=== PATIENT | female | born 1970 | race Caucasian/White ===

== ENCOUNTER 2018-12-15 13:31 | Emergency (ER) | payer BC ==
--- NOTE | 2018-12-15 13:54 | EDM.PDOC ---
ED HPI GENERAL MEDICAL PROBLEM - General Chief Complaint: Headache Stated Complaint: HEAD ACHE Time Seen by Provider: 12/15/18 13:46 Source of Information: Reports: Patient History Limitations: Reports: No Limitations - History of Present Illness INITIAL COMMENTS - FREE TEXT/NARRATIVE: 48-year-old female attends the ED with chief complaint of headache primarily at the base of her skull that radiates up the skull into both frontal aspects of her head and temporal scalp. Headache is for the most part constant for the last 2 weeks. Associated intermittent nausea. There's been no vomiting. She recognizes no visual acuity changes and no changes in her balance. She can drive her car with no problems and read with no problems. Headache is bad enough at bedtime that it can interfere with her sleep. She has a history of intermittent headaches but never continuous headache for the last 2 weeks. Blood pressure was identified to be elevated upon arrival in the ED at 182/101. She has no history of hypertension. She is on Effexor 75mg and Lexapro. Lexapro for greater than 1 year 10 mg strength and Effexor were started about 2 months ago. She is also on low-dose control pill. Onset: Gradual Onset Date: 12/01/18 Duration: Week(s): (Generalized headache for the last 2 weeks.), Constant, Getting Worse Location: Reports: Head Quality: Reports: Ache (Generalized headache), Pressure, Throbbing Severity: Moderate Improves with: Reports: None Worsens with: Reports: None Context: Denies: Activity, Exercise, Lifting, Sick Contact, Trauma, Other Associated Symptoms: Denies: No Other Symptoms, Confusion, Chest Pain, Cough, cough w sputum, Diaphoresis, Fever/Chills, Headaches, Loss of Appetite, Malaise , Nausea/Vomiting, Rash, Seizure, Shortness of Breath, Syncope, Weakness Treatments W[employer]: Reports: Acetaminophen, Other (see below) (Occasional doses of Zofran for nausea.) - Related Data Allergies Allergy/AdvReac Type Severity Reaction Status Date / Time Sulfa (Sulfonamide Allergy Hives Verified 12/15/18 13:45 Antibiotics) sulfamethoxazole Allergy Hives Verified 12/15/18 13:45 [From Bactrim] trimethoprim [From Bactrim] Allergy Hives Verified 12/15/18 13:45 Home Meds: Home Meds Acetaminophen/HYDROcodone [G[place] 325-5 MG] 1 tab PO Q6H PRN #12 tablet 12/15/18 [Rx] Escitalopram Oxalate 10 mg PO DAILY 12/15/18 [History] LORazepam 1 mg PO DAILY PRN 12/15/18 [History] Levothyroxine 75 mcg PO DAILY 12/15/18 [History] Lisinopril 20 mg PO DAILY #30 tablet 12/15/18 [Rx] Norgestimate-Ethinyl Estradiol [[place] 28 Tablet] 1 tab PO DAILY 12/15/18 [ History] Venlafaxine [Effexor] 75 mg PO DAILY 12/15/18 [History] Past Medical History Neurological History: Reports: Headaches, Chronic Psychiatric History: Reports: Anxiety, Depression Endocrine/Metabolic History: Reports: Hypothyroidism (On supplement.) Social & Family History - Living Situation & Occupation Living situation: Reports: Occupation: Unemployed [facility] GENER[facility] - Review of Systems Review Of Systems: See Below Constitutional: Reports: Weakness, Fatigue. Denies: Fever, Chills, Malaise, Weight Loss HEENT: Denies: Glasses, Vertigo Respiratory: Reports: No Symptoms Cardiovascular: Reports: No Symptoms. Denies: Chest Pain, Blood Pressure Problem, Claudication, Lightheadedness, Orthopnea Endocrine: Reports: Fatigue GI/Abdominal: Reports: Nausea. Denies: Vomiting : Reports: No Symptoms Musculoskeletal: Reports: Neck Pain (Pressure at the base of her skull.) Skin: Reports: No Symptoms Neurological: Reports: Headache. Denies: Paresthesia, Pre-Existing Deficit, Seizure, Syncope, Tremors, Trouble Speaking, Difficulty Walking Psychiatric: Reports: Anxiety, Depression Hematologic/Lymphatic: Reports: No Symptoms - Physical Exam Exam: See Below Exam Limited By: No Limitations General Appearance: Alert, WD/WN, No Apparent Distress, Other (Blood pressure is elevated 180 06/29/00 and came down to 192/97) Eye Exam: Bilateral Eye: Normal Fundi, Normal Inspection, PERRL Throat/Mouth: Normal Inspection, Normal Lips, Normal Oropharynx Head Exam: Atraumatic, Normocephalic Neck: Normal Inspection, Supple, Non-Tender, Full Range of Motion. No: Lymphadenopathy (L), Lymphadenopathy (R) Respiratory/Chest: No Respiratory Distress, Lungs Clear, Normal Breath Sounds, No Accessory Muscle Use Cardiovascular: Normal Peripheral Pulses, Regular Rate, Rhythm, No Edema, No Gallop, No Murmur, No Rub GI/Abdominal: Normal Bowel Sounds, Soft, Non-Tender, No Organomegaly Neuro Exam (Abbreviated): Alert, Oriented, CN II-XII Intact, Normal Cognition, Normal Gait, No Motor/Sensory Deficits Extremities: Normal Inspection, Normal Range of Motion, Non-Tender Psychiatric: Normal Affect, Normal Mood Skin Exam: Warm, Dry, Intact, Normal Color, No Rash EKG INTERPRETATION EKG Date: 12/15/18 Time: 14:00 Rhythm: NSR Rate (Beats/Min): 65 [place]: LAD-Left Garfield Deviation (-26) P-Wave: Enlarged (Consider left atrial hypertrophy.) QRS: Other (There is a Q-wave in lead V1 and V2. Consider old anteroseptal myocardial infarction. There is near Q-wave in 3 and aVF again consider old inferior wall myocardial infarction. She has no history of this.) ST-T: Other (T-wave flattening in aVF again nonspecific finding. It is also flattened V2.) QT: Normal EKG Interpretation Comments: Abnormal ECG Course - Vital Signs Last Recorded V/S: Last Vital Signs Temp 36.2 C 12/15/18 13:41 Pulse 75 12/15/18 13:41 Resp 16 12/15/18 13:41 BP 155/95 H 12/15/18 16:15 Pulse Ox 100 12/15/18 13:41 - Orders/Labs/Meds Labs: Laboratory Tests 12/15/18 12/15/18 12/15/18 Range/Units 14:00 14:00 14:00 WBC 6.69 (3.98-10.04) K/mm3 RBC 4.62 (3.98-5.22) M/mm3 Hgb 14.5 (11.2-15.7) gm/L Hct 42.9 (34.1-44.9) % MCV 92.9 (79.4-94.8) fl MCH 31.4 (25.6-32.2) pg MCHC 33.8 (32.2-35.5) g/dl RDW Std Deviation 43.9 (36.4-46.3) fL Plt Count 332 (182-369) K/mm3 MPV 9.4 (9.4-12.3) fl Neutrophils % (Manual) 69 H (40-60) % Band Neutrophils % 0 (0-10) % Lymphocytes % (Manual) 27 (20-40) % Atypical Lymphs % 0 % Monocytes % (Manual) 1 L (2-10) % Eosinophils % (Manual) 2 (0.7-5.8) % Basophils % (Manual) 1 (0.1-1.2) Platelet Estimate Adequate Plt Morphology Comment Normal RBC Morph Comment Normal Sodium 142 (136-145) mEq/L Potassium 4.0 (3.5-5.1) mEq/L Chloride 105 (98-107) mEq/L Carbon Dioxide 28 (21-32) mEq/L Anion Gap 13.0 (5-15) BUN 11 (7-18) mg/dL Creatinine 1.0 (0.55-1.02) mg/dL Est Cr Clr Drug Dosing 61.23 mL/min Estimated GFR (MDRD) 59 (>60) mL/min BUN/Creatinine Ratio 11.0 L (14-18) Glucose 91 (74-106) mg/dL Calcium 9.1 (8.5-10.1) mg/dL Total Bilirubin 0.3 (0.2-1.0) mg/dL AST 14 L (15-37) U/L ALT 28 (14-59) U/L Alkaline Phosphatase 72 (46-116) U/L Total Protein 7.1 (6.4-8.2) g/dl Albumin 3.8 (3.4-5.0) g/dl Globulin 3.3 gm/dL Albumin/Globulin Ratio 1.2 (1-2) Urine Color Dark yellow (Yellow) Urine Appearance Clear (Clear) Urine pH 6.0 (5.0-8.0) Ur Specific [place] > or = 1.030 (1.005-1.030) Urine Protein Trace H (Negative) Urine Glucose (UA) Negative (Negative) Urine Ketones Negative (Negative) Urine Occult Blood Trace-lysed H (Negative) Urine Nitrite Negative (Negative) Urine Bilirubin Negative (Negative) Urine Urobilinogen 0.2 (0.2-1.0) Ur Leukocyte Esterase Negative (Negative) Urine RBC 0-5 (0-5) /hpf Urine WBC 0-5 (0-5) /hpf Ur Squamous Epith Cells 0-5 (0-5) /hpf Urine Bacteria Few (FEW) /hpf Urine Mucus Moderate H (FEW) /hpf Meds: Medications Discontinued Medications Generic Name Dose Route Start Last Admin Trade Name Lenore PRN Reason Stop Dose Admin Hydralazine HCl 10 mg 12/15/18 14:54 12/15/18 15:22 Apresoline IVPUSH 12/15/18 14:55 10 mg ONETIME ONE Administration - Radiology Interpretation Free Text/Narrative:: 48-year-old female presents to the ED for evaluation of a persistent headache for the last 2 weeks. Headache is mostly felt the base of her skull and then radiates up through the occipital frontal part of her head and into the temporal part of her scalp. ie. Chronic daily headache. Upon arrival she was noted to have significant elevation of her blood pressure at 181 101. She has no history of hypertension. Medication contreras she's been on Lexapro for greater than a year 10 mg a day and Effexor 75 mg daily was started about 2 months ago. Both medicines are known to have a side effect of producing headache. The problem is to try and differentiate hypertension versus medication adverse effect as the cause of her headache. Her neuro exam is normal. Fundi are normal without papilledema. Plan routine labs and urinalysis and ECG to be done. - Re-Assessments/Exams Free Text/Narrative Re-Assessment/Exam: 12/15/18 14:21 Blood pressure is slowly improving down to 188/98. 12/15/18 14:49 BP pressure is currently 155/103. I'm therefore going to treat her with a dose of hydralazine 10 mg IV. Her labs for the most part better back are normal. There is no significant kidney dysfunction or proteinuria. 12/15/18 15:17 Labs reveal a normal white count at 6.69. Differential 69% neutrophils with no bands hemoglobin is 14.5 with hematocrit of 42.9. Platelet count is 332,000. Sodium 142 with a potassium of 4.0. Chloride is 105 with a bicarbonate 28. And a gap is 13.0. BUN is 11 with a creatinine of 1.0. Glucose is 91 Dosing is 9.1. Liver function is normal. Total protein is 7.1 with an albumin fraction of 3.8. Urine is dark yellow in color. Trace of protein and trace lysed occult blood. Moderate mucus but no signs of infection 12/15/18 15:54 BP is 152/91 at present. Sats are 99%. Hydralazine was given at 1455 hrs. Departure - Departure Time of Disposition: 16:06 Disposition: Home, Self-Care 01 Condition: Fair Clinical Impression: Chronic daily headache, Tension-type headache Hypertension Qualifiers: Hypertension type: essential hypertension Qualified Code(s): I10 - Essential ( primary) hypertension - Discharge Information *PRESCRIPTION DRUG MONITORING PROGRAM REVIEWED*: Not Applicable *COPY OF PRESCRIPTION DRUG MONITORING REPORT IN PATIENT LEESA: Not Applicable Prescriptions: Acetaminophen/HYDROcodone [[place] 325-5 MG] 1 tab PO Q6H PRN #12 tablet PRN Reason: headache relief Lisinopril 20 mg PO DAILY #30 tablet Instructions: Hypertension Referrals: PCP,None [Primary Care Provider] - Forms: ED Department Discharge Additional Instructions: Evaluation in the emergency room today in regards to persistent daily chronic headache for the last 2 weeks. Pressure seems to start at the base of the skull and radiate forwards to the temples and frontal aspects of your head. This is compatible with a tension-type headache versus migraine type headache. In the ED were identified to have an elevated blood pressure which did come down over time it still remained abnormally high. Blood tests were all normal and urinalysis was normal as well. Is therefore my opinion that should start on blood pressure reduction medication lisinopril 20 mg once daily. You will need to follow-up with her primary care physician in about a month's time to see how your blood pressure is doing and for refills. I strongly suspect are chronic daily headache is likely due to side effects of Effexor medication which you were started on 2 months ago. Headache is one of the most commonly reported side effects of this medication. Just stopping it for the next 2 weeks and see if her headaches don't improve. In follow-up with your primary care physician for alternative medication if needed.I did write a prescription for pain medication Gunn[place] --5/325mg if needed for relief of headache. It should be taken with a little bit of food.
[2018-12-15] MEDS ORDERED: hydrALAZINE 20 MG/ML SDV IVPUSH ONE (14:54)
== END 2018-12-15 16:25 | disposition home or self-care (01) ==
LOC: JD.ED 13:31
DX: G44.229 Chronic tension-type headache, not intractable (principal); F41.9 Anxiety disorder, unspecified; F32.9 Major depressive disorder, single episode, unspecified; E03.9 Hypothyroidism, unspecified; I10 Essential (primary) hypertension; Z88.2 Allergy status to sulfonamides; Z88.1 Allergy status to other antibiotic agents; Z79.899 Other long term (current) drug therapy
CPT/HCPCS: 36415; 80053; 81001; 85007; 85027; 93005; 96374; 99284; J0360; 93010

== ENCOUNTER 2023-03-17 06:40 | Day surgery (SDC) | payer BC ==
[~2023-03-17 06:40] MED LIST: Lactated Ringers 1,000 ML IV SCH; Sodium Chloride 0.9% 10 ML Syringe FLUSH PRN; Sodium Chloride 0.9% 10 ML Syringe FLUSH SCH
[2023-03-17] MEDS ORDERED: HYDROmorphone 0.5 MG/0.5 ML Syringe IVPUSH PRN (07:02)
[2023-03-17] MEDS ORDERED: fentaNYL 100 MCG/2 ML SDV IVPUSH PRN (07:02)
[2023-03-17] MEDS ORDERED: Ondansetron 4 MG/2 ML SDV IVPUSH PRN (07:02)
[2023-03-17] MEDS ORDERED: Sugammadex Sodium 200 MG/2 ML VIAL ONE (07:18)
[2023-03-17] MEDS ORDERED: Midazolam 1 MG/ML 2 ML SDV ONE (07:18)
[2023-03-17] MEDS ORDERED: Rocuronium 50 MG/5 ML Vial ONE (07:19)
[2023-03-17] MEDS ORDERED: fentaNYL 100 MCG/2 ML SDV ONE ×2 (07:19→08:27)
[2023-03-17] MEDS ORDERED: Dexamethasone 4 MG/ML 5 ML MDV ONE (07:19)
[2023-03-17] MEDS ORDERED: Lidocaine 1% 2 ML ONE (07:19)
[2023-03-17] MEDS ORDERED: Propofol 200 MG/20 ML SDV ONE (07:19)
[2023-03-17] MEDS ORDERED: ceFAZolin 2 GM Vial ONE (07:27)
[2023-03-17 07:28] LABS: BASOPHILS PERCENT AUTO 1.3 % (0.0-1.0); EOSINOPHILS ABSOLUTE AUTO 0.1 K/mm3 (0.0-0.4); EOSINOPHILS PERCENT AUTO 1.6 % (0.0-6.0); HEMATOCRIT 36.5 % (37.0-47.0); HEMOGLOBIN 11.6 gm/dl (12.0-16.0); IMMATURE GRAN ABSOLUTE AUTO 0.01 K/mm3 (0.00-0.05); IMMATURE GRAN PERCENT AUTO 0.3 % (0.0-0.4); LYMPHOCYTES ABSOLUTE AUTO 0.6 K/mm3 (1.0-4.8); LYMPHOCYTES PERCENT AUTO 19.2 % (24.0-44.0); MEAN CORPUSCULAR HEMOGLOBIN 25.4 pg (28.0-32.0); MEAN CORPUSCULAR HGB CONC 31.8 g/dl (32.0-36.0); MEAN CORPUSCULAR VOLUME 79.9 fl (83.0-99.0); MEAN PLATELET VOLUME 9.1 fl (9.4-12.3); MONOCYTES ABSOLUTE AUTO 0.4 K/mm3 (0.0-0.8); NEUTROPHILS PERCENT AUTO 63.6 % (41.0-71.0); PLATELET COUNT,PLT 299 K/mm3 (150-400); RED BLOOD CELL COUNT 4.57 M/mm3 (4.10-5.30); WHITE BLOOD CELL COUNT,WBC 3.08 K/mm3 (3.9-11.3)
[2023-03-17] MEDS ORDERED: Bupivacaine 0.5% 10 ML SDV ONE (07:42)
[2023-03-17] MEDS ORDERED: Bupivacaine 0.5% 30 ML SDV ONE (07:43)
[2023-03-17] MEDS ORDERED: Bupivacaine 0.25%/EPINEPHrine 1:200,000 30 ML SDV ONE (07:43)
[2023-03-17 07:59] LABS: ANION GAP 13.8 (5-15); CALCIUM 9.2 mg/dL (8.5-10.1); CREATININE 0.8 mg/dL (0.55-1.02); EST CRCL DRUG DOSING (CG) 72.22 mL/min; POTASSIUM,K 3.8 mEq/L (3.5-5.1)
[2023-03-17] MEDS ORDERED: HYDROmorphone 0.5 MG/0.5 ML Syringe ONE (08:12)
[2023-03-17] MEDS ORDERED: Ketorolac 30 MG/ML SDV ONE (08:48)
[2023-03-17] MEDS ORDERED: Ondansetron 4 MG/2 ML SDV ONE (08:48)
[2023-03-17] MEDS ORDERED: Acetaminophen/oxyCODONE 325-5 MG Tab PO PRN (10:12)
== END 2023-03-17 12:43 | disposition home or self-care (01) ==
LOC: JD.SDS 06:40
PROVIDERS: ATTEND Obstetrics & Gynecology
DX: D25.0 Submucous leiomyoma of uterus (principal); D25.1 Intramural leiomyoma of uterus; D25.2 Subserosal leiomyoma of uterus; N80.03 Adenomyosis of the uterus; N72 Inflammatory disease of cervix uteri; N80.9 Endometriosis, unspecified; I10 Essential (primary) hypertension; N83.8 Other noninflammatory disorders of ovary, fallopian tube and broad ligament; E03.9 Hypothyroidism, unspecified; K21.9 Gastro-esophageal reflux disease without esophagitis; F41.9 Anxiety disorder, unspecified; F32.A Depression, unspecified; Z88.2 Allergy status to sulfonamides; Z88.8 Allergy status to other drugs, medicaments and biological substances; Z79.899 Other long term (current) drug therapy; Z79.890 Hormone replacement therapy
CPT/HCPCS: 36415; 58552; 80048; 85025; 86850; 86900; 86901; A9270; J0690; J1100; J1170; J1885; J2250; J2405; J2704; J3010; J3490; J7120; 00944